=== PATIENT | male | born 1990 | race Caucasian/White ===

== ENCOUNTER 2021-05-20 14:06 | Emergency (ER) | payer OTHER, SELFPAY ==
[2021-05-20 16:00] LABS: Absolute Lymphocytes (CBC) 1.9 K/uL (0.7-4.9); Lymphocytes % 20.2 % (15.3-44.8); MPV 7.7 fL (7.6-11.3); RBC Red Blood Cell Count 5.41 M/uL (4.33-5.43)
--- NOTE | 2021-05-20 16:48 | RAD REPORT ---
EXAM DESCRIPTION: CT - Stone Protocol - 05/20/2021 4:09 pm CLINICAL HISTORY: FLANK PAIN COMPARISON: <Comparisons> TECHNIQUE: Axial 3 mm thick images were obtained without oral or IV contrast. The [id number] span s the entirety of the system including uppermost abdomen and lung bases. All CT scans are performed using dose optimization technique as appropriate and may include automated exposure control or mA/KV adjustment according to patient size. FINDINGS: No hydronephrosis is present and no obstructing ureteral calculi. No nonobstructing calcul i seen. No suspicious renal masses. Isodense masses and pyelonephritis are not excluded on a stone pr otocol CT scan. No significant adrenal finding. No urinary bladder suspicious finding. Liver shows diffuse fatty infiltration pattern with no focal liver lesion. There is minimal sparing n ear the gallbladder fossa. Spleen and pancreas show no suspicious findings. No gallbladder or biliary tree abnormality identified. No suspicious bowel findings. Appendix is normal. No hernia, mass or bulky lymphadenopathy noted. No free air, free fluid or inflammatory stranding. No acute bone finding identifiable. L5 is partially sacralized on the left. A 10 millimeter rounded a ir density is present along the anterior inferior margin of the right SI joint. A punctate 1 mm sized air density is present anterior margin superior left SI joint. No SI joint sclerotic changes present . A 5 mm noncalcified pulmonary nodule is seen the right lower lobe. In a low risk patient, there is no specific follow-up recommendation for a nodule of this size. IMPRESSION: No hydronephrosis, obstructing calculus or acute finding. Isodense masses and pyelonephritis are not excluded on stone protocol technique. Small right-side and punctate left-side air densities near the SI joints are present. No other SI josue nt abnormality seen. The air density is not within the SI joint but could be a vacuum phenomenon type process indicating SI joint pathology. These of the only findings that are seen as a possible source for back pain.
[2021-05-20 19:00] LABS: Urine Blood Negative (Negative); Urine Glucose Negative (Negative); Urine Protein Negative (Negative); Urine Specific Gravity 1.015 (1.005-1.030)
[2021-05-20 19:19] LABS: Urine Bacteria <20 /HPF (NONE SEEN); Urine RBC <5 /HPF (NONE SEEN)
--- NOTE | 2021-05-20 19:21 | ER ---
Nurse's Notes [facility] Name: Andrade Morfin Age: 30 yrs Sex: Male : 1990 Arrival Date: 05/20/2021 Time: 14:13 Bed Waiting Private MD: Diagnosis: Right Flank Pain Presentation: 05/20 15:11 Chief complaint: Patient states: right sided flank pain x2 weeks. Thought it was a jh5 pulled muscle but it's not resolving at all. Coronavirus screen: Vaccine status: Patient reports being unvaccinated. Client denies travel out of the [place] in the last 14 days. Ebola Screen: Patient negative for fever greater than or equal to 101.5 degrees Fahrenheit, and additional compatible Ebola Virus Disease symptoms Patient denies exposure to infectious person. Patient denies travel to an Ebola-affected area in the 21 days before illness onset. Initial Sepsis Screen: Does the patient meet any 2 criteria? No. Patient's initial sepsis screen is negative. Does the patient have a suspected source of infection? No. Patient's initial sepsis screen is negative. Risk Assessment: Do you want to hurt yourself or someone else? Patient reports no desire to harm self or others. Onset of symptoms was April 30, 2021. 15:11 Method Of Arrival: Ambulatory [facility] 15:11 Acuity: ABRAHAM 3 5 Triage Assessment: 15:14 General: Appears in no apparent distress. uncomfortable, obese, well groomed, well jh5 developed, well nourished, Behavior is calm, cooperative, appropriate for age. Pain: Complains of pain in flank. Historical: - Allergies: 15:14 Codeine; [facility] - Home Meds: 15:14 None [Active]; 5 - PMHx: 15:14 None; 5 - Immunization history:: Adult Immunizations up to date. - Social history:: Smoking status: Patient denies any tobacco usage or history of. Screenin:15 Abuse screen: Denies threats or abuse. Denies injuries from another. Nutritional [facility] screening: No deficits noted. Tuberculosis screening: No symptoms or risk factors identified. Fall Risk None identified. Vital Signs: 15:11 BP 145 / 84; Pulse 67; Resp 18; Temp 97.3; Pulse Ox 99% ; Weight 136.08 kg; Height 6 jh5 ft. 1 in. (185.42 cm); Pain 8/10; 15:11 Body Mass Index 39.58 (136.08 kg, 185.42 cm) [facility] ED Course: 14:13 Patient arrived in ED. am2 15:10 [facility] kb 15:10 Corbin Boss MD is Attending Physician. kb 15:14 Triage completed. [facility] 15:15 Arm band placed on left wrist. [facility] 15:15 Patient has correct armband on for positive identification. 5 15:15 Inserted saline lock: 20 gauge in right antecubital area, using aseptic technique. [facility] 16:09 CT Stone Protocol In Process Unspecified. EDMS Administered Medications: No medications were administered Outcome: 19:20 Discharge ordered by . kb 19:27 Patient left the ED. kb Signatures: Dispatcher [employer] EDMS Angelic Bronson FNP-C FNP-Jasmina Rivera am2 Mary Ellen Adams, RN RN [facility]
--- NOTE | 2021-05-20 19:21 | EDPHYS ---
Physician Documentation [facility] Name: Andrade Morfin Age: 30 yrs Sex: Male : 1990 Arrival Date: 05/20/2021 Time: 14:13 Bed Waiting Private MD: ED Physician Corbin Boss HPI: 05/20 17:03 This 30 yrs old Male presents to ER via Ambulatory with complaints of Flank Pain. kb 17:03 The patient complains of pain in the right flank. The pain does not radiate. Onset: The kb symptoms/episode began/occurred 2 week(s) ago. Modifying factors: The symptoms are alleviated by nothing. the symptoms are aggravated by nothing. Associated signs and symptoms: The patient has no apparent associated signs or symptoms. Severity of pain: At its worst the pain was moderate in the emergency department the pain is unchanged. The patient has not experienced similar symptoms in the past. The patient has not recently seen a physician. Pt reports right flank pain for 2 weeks. Pain worse in the mornings and gets better throughout the day. Today pain has been persistent. Historical: - Allergies: 15:14 Codeine; jh5 - Home Meds: 15:14 None [Active]; 5 - PMHx: 15:14 None; 5 - Immunization history:: Adult Immunizations up to date. - Social history:: Smoking status: Patient denies any tobacco usage or history of. ROS: 17:02 Constitutional: Negative for fever, chills, and weight loss. kb 17:02 Back: Positive for flank pain, on the right. 17:02 All other systems are negative. Exam: 17:02 Constitutional: This is a well developed, well nourished patient who is awake, alert, kb and in no acute distress. Head/Face: Normocephalic, atraumatic. ENT: Moist Mucous membranes Cardiovascular: Regular rate and rhythm with a normal S1 and S2. No gallops, murmurs, or rubs. No pulse deficits. Respiratory: Respirations even and unlabored. No increased work of breathing. Talking in full sentences Abdomen/GI: Soft, non-tender. No distention Skin: Warm, dry with normal turgor. Normal color. MS/ Extremity: Pulses equal, no cyanosis. Neurovascular intact. Full, normal range of motion. Neuro: Awake and alert, GCS 15, oriented to person, place, time, and situation. Moves all extremities. Normal gait. Psych: Awake, alert, with orientation to person, place and time. Behavior, mood, and affect are within normal limits. 17:02 Back: CVA tenderness, that is moderate, is noted on the right. Vital Signs: 15:11 BP 145 / 84; Pulse 67; Resp 18; Temp 97.3; Pulse Ox 99% ; Weight 136.08 kg; Height 6 jh5 ft. 1 in. (185.42 cm); Pain 8/10; 15:11 Body Mass Index 39.58 (136.08 kg, 185.42 cm) jh5 MDM: 15:10 Patient medically screened. kb 17:02 Data reviewed: vital signs, nurses notes. Data interpreted: Pulse oximetry: on room air kb is 99 %. Interpretation: normal. Counseling: I had a detailed discussion with the patient and/or guardian regarding: the historical points, exam findings, and any diagnostic results supporting the discharge/admit diagnosis, lab results, radiology results, the need for outpatient follow up, a family practitioner, to return to the emergency department if symptoms worsen or persist or if there are any questions or concerns that arise at home. 05/20 15:44 Order name: Basic Metabolic Panel 05/20 15:44 Order name: CBC with Diff 05/20 15:45 Order name: Basic Metabolic Panel; Complete Time: 16:20 EDMS 05/20 15:45 Order name: CBC with Automated Diff; Complete Time: 16:10 EDMS 05/20 18:59 Order name: Urine Dipstick-Ancillary; Complete Time: 19:02 EDMS 05/20 19:02 Order name: Urine Microscopic Only 05/20 15:44 Order name: IV Saline Lock 05/20 15:44 Order name: Labs collected and sent 05/20 15:44 Order name: CT Stone Protocol; Complete Time: 16:50 05/20 15:44 Order name: Urine Dipstick-Ancillary (obtain specimen) 05/20 19:02 Order name: Urine Microscopic Only; Complete Time: 19:20 EDMS Administered Medications: No medications were administered Disposition: 05/21 07:26 Co-signature as Attending Physician, Corbin Boss MD I agree with the assessment and kdr plan of care. Disposition Summary: 05/20/21 19:20 Discharge Ordered Location: Home kb Condition: Stable kb Diagnosis - Right Flank Pain kb Followup: kb - With: Emergency Department - When: As needed - Reason: Worsening of condition Followup: kb - With: Private Physician - When: 2 - 3 days - Reason: Recheck today's complaints, Continuance of care, Re-evaluation by your physician Discharge Instructions: - Discharge Summary Sheet kb - Flank Pain, Adult, [id number] kb Forms: - Medication Reconciliation Form kb - Thank You Letter kb - Antibiotic Education kb - Prescription Opioid Use kb Prescriptions: - Diclofenac Sodium 75 mg Oral tablet,delayed release (DR/EC) - take 1 tablet by ORAL route 2 times per day As needed; 30 tablet; Refills: 0, kb Product Selection Permitted Signatures: Dispatcher [employer] EDMS Angelic Bronson, DEVELOPMENT COACH-C DEVELOPMENT COACH-Corbin Nichols MD MD kdr Rees, Jessica, RN RN jh5
[2021-05-20 19:33] VITALS: BP 145/84; TEMP 97.3; O2SAT 99
== END 2021-05-20 19:27 | disposition home or self-care (01) ==
LOC: ER 14:06
DX: R10.9 Unspecified abdominal pain (principal)
CPT/HCPCS: 36415; 74176; 76377; 80048; 81003; 81015; 85025; 99283